=== PATIENT | female | born 1985 | race Two or more races ===

== ENCOUNTER 2021-06-06 14:44 | Outpatient (CLI) | payer OTHER | END 2021-06-06 15:41 | disposition home or self-care (01) | LOC: PRENATAL 14:44 | PROVIDERS: ATTEND Obstetrics & Gynecology Maternal & Fetal Medicine | DX: O34.00 Maternal care for unspecified congenital malformation of uterus, unspecified trimester (principal); O99.891 Other specified diseases and conditions complicating pregnancy ==

== ENCOUNTER 2022-12-05 08:56 | Outpatient (CLI) | payer OTHER | END 2022-12-05 09:42 | disposition home or self-care (01) | LOC: NST 08:56 | PROVIDERS: ATTEND Obstetrics & Gynecology Maternal & Fetal Medicine | DX: Z34.82 Encounter for supervision of other normal pregnancy, second trimester (principal) ==

== ENCOUNTER 2022-12-17 07:32 | Outpatient (CLI) | payer OTHER | END 2022-12-17 08:25 | disposition home or self-care (01) | LOC: NST 07:32 | PROVIDERS: ATTEND Obstetrics & Gynecology Maternal & Fetal Medicine | DX: Z34.82 Encounter for supervision of other normal pregnancy, second trimester (principal) ==

== ENCOUNTER 2023-03-17 14:15 | Inpatient (IN) | payer OTHER ==
[~2023-03-17] VITALS: Ht 152.4 cm; Wt 2.7 kg
[2023-04-04] MEDS ORDERED: PRENATAL + DHA1 EAC1 (06:40)
[2023-04-04 07:23] LABS: HEMOGLOBIN 12.3 g/dL (12.0-15.00); MEAN CELL VOLUME 91.7 fL (80.00-100.00); MEAN CORPUSCULAR HEMOGLOBIN 32.2 pg (27.00-32.0); MEAN CORPUSCULAR HGB CONC 35.1 g/dl (32.0-36.0); PLATELET COUNT 227 K/uL (150-450); RED BLOOD COUNT 3.82 M/uL (4.00-6.00); RED CELL DISTRIBUTION WIDTH 12.8 % (11.5-14.5)
[2023-04-04 07:45] LABS: INR < 0.93; PARTIAL THROMBOPLASTIN TIME 25.8 SECONDS (22.0-34.0); PROTHROMBIN TIME 9.8 SECONDS (9.0-11.5)
[2023-04-04 07:49] LABS: ALBUMIN 2.7 gm/dL (3.4-5.0); BILIRUBIN TOTAL 0.23 mg/dL (0.3-1.2); CALCIUM 8.9 mg/dL (8.5-10.1); CREATININE SERUM 0.73 mg/dL (0.55-1.02); GFR 90.72; GLOBULINA 3.8 G/DL (2.4-3.5); POTASSIUM 4.08 mEq/L (3.5-5.1); TOTAL PROTEIN 6.5 gm/dL (6.4-8.2)
[2023-04-05 01:39] LABS: HEMOGLOBIN 11.3 g/dL (12.0-15.00); MEAN CELL VOLUME 91.1 fL (80.00-100.00); MEAN CORPUSCULAR HEMOGLOBIN 31.1 pg (27.00-32.0); MEAN CORPUSCULAR HGB CONC 34.2 g/dl (32.0-36.0); PLATELET COUNT 231 K/uL (150-450); RED BLOOD COUNT 3.62 M/uL (4.00-6.00); RED CELL DISTRIBUTION WIDTH 13.3 % (11.5-14.5)
[2023-04-05 02:13] LABS: ABG PH 7.296 (7.35-7.45); ABG PO2 23.7 mmHg (80-100); ABG pCO2 39.6 mmHg (35-45); BASE EXCESS -7.1 mmol/l; BICARBONATE 18.9 mmol/l (23-25); SaO2 32.9 %; Tco2 20.1 mmol/l; o2 21 %
[2023-04-05 10:59] LABS: MEAN CELL VOLUME 91.1 fL (80.00-100.00); MEAN CORPUSCULAR HGB CONC 34.9 g/dl (32.0-36.0); PLATELET COUNT 205 K/uL (150-450); RED BLOOD COUNT 3.07 M/uL (4.00-6.00); RED CELL DISTRIBUTION WIDTH 13.3 % (11.5-14.5)
[2023-04-05 11:08] LABS: HEMOGLOBIN 9.8 g/dL (12.0-15.00); MEAN CORPUSCULAR HEMOGLOBIN 31.9 pg (27.00-32.0)
[2023-04-07] MEDS ORDERED: KETO10TA2 PO (07:54)
[2023-04-07] MEDS ORDERED: OXYC1TAB9 PO (07:54)
== END 2023-04-07 12:32 | disposition home or self-care (01) | DRG 788 ==
LOC: LDR 03-30 14:15 → OB/GYN 04-04 05:59
PROVIDERS: ADMIT Obstetrics & Gynecology Maternal & Fetal Medicine; ATTEND Obstetrics & Gynecology Maternal & Fetal Medicine
PROC: 4A1HXCZ Monitoring of Products of Conception, Cardiac Rate, External Approach (ICD-10-PCS; 2023-04-04)
PROC: 10D00Z1 Extraction of Products of Conception, Low, Open Approach (ICD-10-PCS; principal; 2023-04-04 19:30)
DX: O82 Encounter for cesarean delivery without indication (principal); O62.1 Secondary uterine inertia; O99.824 Streptococcus B carrier state complicating childbirth; Z3A.40 40 weeks gestation of pregnancy; Z37.0 Single live birth; Z20.822 Contact with and (suspected) exposure to COVID-19

== ENCOUNTER 2023-03-21 10:50 | Outpatient (CLI) | payer OTHER | END 2023-03-21 12:25 | disposition home or self-care (01) | LOC: NST 10:50 | PROVIDERS: ATTEND Obstetrics & Gynecology | DX: Z34.83 Encounter for supervision of other normal pregnancy, third trimester (principal) ==

== ENCOUNTER 2023-03-24 11:47 | Outpatient (CLI) | payer OTHER | END 2023-03-24 12:51 | disposition home or self-care (01) | LOC: NST 11:47 | PROVIDERS: ATTEND Obstetrics & Gynecology | DX: Z34.83 Encounter for supervision of other normal pregnancy, third trimester (principal) ==

== ENCOUNTER → 2023-04-01 | Outpatient (CLI) | payer OTHER | END | disposition home or self-care (01) | LOC: NST 13:29 | PROVIDERS: ATTEND Obstetrics & Gynecology Maternal & Fetal Medicine | DX: Z34.83 Encounter for supervision of other normal pregnancy, third trimester (principal) ==

== ENCOUNTER 2025-05-04 12:51 | Outpatient (CLI) | payer OTHER ==
[2025-05-04 12:05] VITALS: BP 106/67
[~2025-05-04 12:51] MED LIST: KETO10TA2 PO; OXYC1TAB9 PO; PRENATAL + DHA1 EAC1
[2025-05-04 15:30] VITALS: BP 100/63; O2SAT 100
[2025-05-04 16:36] VITALS: BP 100/63
== END 2025-05-04 16:38 | disposition home or self-care (01) ==
LOC: OBS/DEL 12:51
PROVIDERS: ATTEND Obstetrics & Gynecology
DX: O26.892 Other specified pregnancy related conditions, second trimester (principal); Z3A.20 20 weeks gestation of pregnancy